=== PATIENT | male | born 1965 | race Hispanic/Latino ===

== ENCOUNTER 2016-10-11 14:08 | Day surgery (SDC) | payer OTHER ==
[2016-10-11] VITALS (7 sets, daily range): BP systolic 141–161; BP diastolic 75–96; PULSE 71–82; RESP 11–18; O2SAT 92–98
[~2016-10-11] VITALS: Ht 165.1 cm; Wt 109.7 kg
[~2016-10-11 14:08] MED LIST: Dexamethasone 4 mg/mL Inj IVPUSH PRN; EPHEDrine Sulfate 50 mg/mL Inj IVPUSH PRN; HYDROmorphone 1 mg/mL Inj IVPUSH PRN; IBUP800T28 PO; Labetalol 5 mg/mL 4 mL Inj IV PRN; Lactated Ringer's 1,000 ML IV SCH; Lactated Ringer's 500 ML IV PRN; MetoCLOpramide 5 mg/mL 2 mL Inj IVPUSH PRN; Ondansetron 2 mg/mL 2 mL Inj IVPUSH PRN; Phenylephrine 10,000 mCg/mL Inj IVPUSH PRN; fentaNYL-PF 50 mCg/mL 2 mL Inj IVPUSH PRN; hydrALAZINE 20 mg/mL Inj IVPUSH PRN
[2016-10-11] MEDS ORDERED: Propofol 10,000 mCg/mL 20 mL Inj ONE (14:09)
[2016-10-11] MEDS ORDERED: fentaNYL-PF 50 mCg/mL 2 mL Inj ONE (14:09)
[2016-10-11] MEDS ORDERED: Dexamethasone 4 mg/mL Inj ONE (14:09)
[2016-10-11] MEDS ORDERED: Ketamine 10 mg/mL 20 mL Inj ONE (14:09)
[2016-10-11] MEDS ORDERED: Ondansetron 2 mg/mL 2 mL Inj ONE (14:09)
[2016-10-11] MEDS ORDERED: Lactated Ringer's 1,000 ML IV ONE (14:30)
--- NOTE | 2016-10-11 16:59 | PCM.HPANE ---
Patient Data Date of Service: Oct 11, 2016 Surgeon Admitting Provider: Attending Provider:Josep Nation DO Primary Care Physician:Asa Sampson DO Other Provider:Gretta Ayala Anesthesia Reason for Visit Right Knee Medial Meniscal Tear Ht/WT & BMI Height (Feet): 5 Height (Inches): 5 Weight (Kilograms): 109.7 Body Mass Index 40.00 Allergies Coded Allergies: Penicillins (Verified Allergy, Severe, 10/11/16) Past Anesthesia History Anesthesia History: Denies:: Abnormal Airway, Anesthesia Reactions, Difficult Intubation, Fam Anesthesia Reaction, Fam Malignant Hypertherm, Malignant Hyperthermia Diabetes History Hx Diabetes?: No MRSA MRSA: No Medications Home Meds Incl Beta Naveen: No Reported Medications Ibuprofen 800 Mg [id number] Mg PO TID PRN For Pain Ref 0 10/08/16 History History of ENT Problems?: No HEENT History: Denies:: Abnormal Airway Cataracts Difficult Intubation Dysphagia Glaucoma Hearing Problem Sinus Problem TMJ Denture Type: None Teeth Condition: Within Normal Limits Hx of Heart Problems?: No Cardiovascular History: Positive for:: Hypertension (takes no meds.) Denies:: AICD Abdominal Aortic Aneurism Atrial Fibrillation Cardiac Surgery Chest Pain Congestive Heart Failure Coronary Artery Disease Edema Heart Murmur Irregular Heartbeat Pacemaker Peripheral Vascular Rheumatic Fever Thrombophlebitis Valvular Heart Disease Hx of Respiratory Problem?: No Respiratory History: Positive for:: Use of C-PAP Machine (currently in storage not used in a month) Denies:: Tuberculosis Hx Neurologic Problems?: No Hx of GI Problems?: No Hx of Problems?: Yes Genitourinary History: Positive for:: Kidney Stones (4 times including this admit) Denies:: HX of Hemodialysis HX of Peritoneal Dialysis: No Male Hx: Denies:: Prostate Problems Scrotal Mass Testicular Surgery Skin History: Denies:: History Skin Disorders? Pressure Ulcers Hx Musculoskeletal Problems?: No Hx of Psycho/Social Problems?: No Hx Surgeries?: Yes (lithotripsy) Hx Any Other Health Problems?: No Other History: Positive for:: Hospitalization (Kidney Stones) Denies:: Cancer Endocrine Disease Thyroid Disease History Blood Transfusions: Positive for:: Accept Blood Products? Denies:: Blood Transfusions Hx Diabetes: No Hx Alcohol Use: Yes (Occassionally)Hx Substance Use: No Smoking Status: Never Smoker Have You Smoked inLast 12 mo: No Stop/Bang S-Snoring: Do You Snore Loudly: Yes T-Tired: feel tired, fatigued: No O-Obsered: Observed not breath: Yes P-Blood Pressure: treated: Yes B- Body Mass Index > 35 kg/m2: Yes A- Age over 50: Yes N- Neck Large Circumference: No G- Gender Male: Yes ERIC Total Score: 6 ERIC Risk Assessment: High Risk, =/>3 Yes Risk Assessment Category Category 1A: Patient has history of documented sleep apnea, and HAS NOT received any narcotic, sedative or anesthesia administration during this stay. Category 1B: Patient has history of documented sleep apnea, and HAS received any narcotic , sedative or anesthesia administration during this stay Category 2: Patient has SUSPECTED Obstructive Sleep Apnea, and HAS received any narcotic , sedative or anesthesia administration during this stay. Category 3: Patient has SUSPECTED Obstructive Sleep Apnea and HAS NOT received narcotic, sedative or anesthesia administration during this stay. Category 4: Outpatient in Procedural Areas with known sleep apnea or who screen positive for High Risk via the STOP/BANG questionnaire. Exam Exam Vital Signs Vital Signs Date Time Temp Pulse Resp B/P Pulse Ox O2 Delivery O2 Flow Rate FiO2 10/11/16 14:30 CPAP/BIPAP 10/11/16 14:30 36.5 71 16 161/91 97 Room Air General Appearance: Alert, Oriented X3, Cooperative, No Acute Distress HEENT/AIRWAY: MP 3 Lungs: Clear to Auscultation, Normal Air Movement Heart: Exam Unremarkable, Regular Rate/Rhythm, No Murmurs/Rubs/Gallops Meds/Labs/Diagnostics Admission Meds Current Medications Lactated Ringer's (Lr) 1,000 ml @ ud STK-MED ONCE IV Last administered on 10/11t 14:30; Start 10/11/16 at 14:30; Stop 10/11/16 at 15:08; Status DC Plan Impression Patient chart reviewed, patient interviewed and anesthestic plan with risks, benefits, and alternatives discussed, and informed consent obtained. NPO per Anesth. Guidelines: Yes ASA Physical Status: ASA2 Mod Systemic Disease Anesthetic Plan: GA Bene/Risks/Altern/Consents: Yes HP Complete Prior to Induction: Yes Anshu Yoon MD Oct 11, 2016 16:59
[2016-10-11] MEDS ORDERED: Lidocaine 1%-Epi 1:100,000 20 mL Inj INFILTRATE ONE (17:34)
[2016-10-11] MEDS ORDERED: Ropivacaine-PF 0.5% 30 mL Inj INFILTRATE ONE (17:35)
--- NOTE | 2016-10-11 17:56 | PCM.ANEP1 ---
Post Anesthesia PACU Phase 1 Assessment Date of Service: Oct 11, 2016 Vital Signs Vital Signs Date Time Temp Pulse Resp B/P Pulse Ox O2 Delivery O2 Flow Rate FiO2 10/11/16 14:30 CPAP/BIPAP 10/11/16 14:30 36.5 71 16 161/91 97 Room Air Level of Alertness: Awake, talking RUIZ's with Equal Strength: Yes Pain: No Nausea or Vomiting: No CV Function & Hydration Stable: Yes Airway Device: Oxygen Delivery: Nasal Cannula Lungs: Clear to Auscultation, Normal Air Movement PACU Phase 2 Assessment Complications: No Follow up Care: No Patient Instructions Provided: N/A Anshu Yoon MD Oct 11, 2016 17:56
[2016-10-11] MEDS ORDERED: oxyCODONE-Acetamin 5-325 mg Tablet PO PRN (18:00)
--- NOTE | 2016-10-11 19:26 | OP ---
[address] [address] OPERATIVE REPORT PATIENT: MELINDA CHAUDHRY : 1965 MR#: [id number] ADMIT: 10/11/2016 JOB ID: [id number] DATE OF SURGERY: 10/11/2016 PREOPERATIVE DIAGNOSIS(ES): Right knee torn medial meniscus. POSTOPERATIVE DIAGNOSIS(ES): Right knee torn medial meniscus. PROCEDURE: Right knee video arthroscopy with partial medial meniscectomy. SURGEON: Josep Nation DO ANESTHESIA: General. INDICATIONS: The patient is a 51-year-old male who injured his knee, sustaining a torn medial meniscus. We discussed treatment options for this. He wished to proceed with a right knee video arthroscopy. We discussed the risks, benefits, and possible complications of surgery. All questions were answered and he wished to proceed. PROCEDURE IN DETAIL: The patient was brought to the operating room. He was given a general anesthetic and the right lower extremity was sterilely prepped and draped. An incision was made over the anterolateral knee at the level of the joint line and the blunt trocar was introduced into the knee. Inspection was undertaken. 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 A medial portal was established under needle localization and the meniscal tear was resected back to a stable base with a combination of biters and shaver. His ACL was found to be intact. His lateral compartment was pristine. His patellofemoral compartment was in good condition, with some very mild chondromalacia. The scope was then removed, the portals closed with interrupted nylon suture, and sterile dressings were applied. The patient tolerated the procedure well. Blood loss was minimal. POSTOPERATIVE PROTOCOL: Have the patient use crutches as needed for ambulation. Ice and elevate. Follow up in two weeks or sooner if needed. He was given a prescription for Percocet for pain.
[2016-10-12] MEDS ORDERED: CeFAZolin Inj 2 GM in IV Premix 1 EACH IV SCH (00:30)
== END 2016-10-11 23:59 | disposition home or self-care (01) ==
LOC: SAS 14:08
PROVIDERS: ATTEND Orthopaedic Surgery
PROC: 0SBC4ZZ Excision of Right Knee Joint, Percutaneous Endoscopic Approach (ICD-10-PCS; principal; 2016-10-11 16:00)
DX: S83.231A Complex tear of medial meniscus, current injury, right knee, initial encounter (principal); X50.3XXA Overexertion from repetitive movements, initial encounter; G47.33 Obstructive sleep apnea (adult) (pediatric); G25.81 Restless legs syndrome
CPT/HCPCS: 29881; J1100; J1885; J2250; J2405; J2795; J3010; J7120